=== PATIENT | male | born 1990 | race Caucasian/White ===

== ENCOUNTER 2021-03-01 10:55 | Emergency (ER) | payer OTHER, BC, SELFPAY ==
[2021-03-01 11:18] VITALS: BP 133/95; PULSE 99; RESP 18; TEMP 36.9; O2SAT 99
--- NOTE | 2021-03-01 12:46 | ED.UPPEXIN ---
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 Patient states his orthopedic history is remarkable for previous bilateral ulnar releases. He now has a 1 week worsening of at least half year history of bilateral wrist discomfort associated with paresthesias of his ring finger. Symptoms are mild, somewhat worse at night unrelieved OTC preps like Aleve. No injury, neck pain, weakness; advised to get and wear splints, take anti-inflammatories, get follow-up with prior doctors Related Data Home Medications Medication Instructions Recorded Confirmed lisinopril 20 1 tablet PO DAILY tablet 10/09/20 10/09/20 mg-hydrochlorothiazide 12.5 mg tablet pantoprazole 40 mg tablet,delayed 40 mg PO DAILY tablet 10/09/20 10/09/20 release Allergies Allergy/AdvReac Type Severity Reaction Status Date / Time Sulfa (Sulfonamide Allergy Unknown Unknown Verified 03/01/21 11:25 Antibiotics) Review of Systems Review of Systems: General/Constitutional: No weight loss,fever Eyes: N0: Redness,discharge Ears/Nose/Throat: No: Epistaxis,ear discharge Respiratory: Denies: Hemoptysis Gastrointestinal: No Vomiting, Bleeding-rectal Skin: No Lumps, eruption Neurologic: No Focal Weakness,Sz Hematologic: Denies: Petechiae/Purpura Psychiatric: No: Suicida ideationl All Other Systems: Reviewed and Negative [facility] Family History Family History Father Hypertension Other Diabetes mellitus Social History Social History Smoking status: Former smoker Alcohol intake: current Comments At time of signature, agree with nursing past medical, surgical, social and family history. There is no relevant family history pertinent to the presenting complaint Exam Narrative: General Appearance: Well appearing, Conjunctiva clear Mouth/Throat: Normal appearing, Normal lips, Supple Respiratory: Airway patent, No respiratory distress MS-wrist: Nl strength (mostly intact, limited flexion/extension by pain), Tenderness (flexor/positive Tinel's, with mild decreased ROM), no swelling , negative Phalen's Skin: Warm, Dry, Normal color Neurological: A&O x3, , Normal affect Course Vital Signs Vital signs: Vital Signs Temperature 98.5 F 03/01/21 11:18 Pulse Rate 99 03/01/21 11:18 Respiratory Rate 18 03/01/21 11:18 Blood Pressure 133/95 H 03/01/21 11:18 Pulse Oximetry 99 03/01/21 11:18 Temperature 98.5 F 03/01/21 11:18 Pulse Rate 99 03/01/21 11:18 Respiratory Rate 18 03/01/21 11:18 Blood Pressure 133/95 H 03/01/21 11:18 Pulse Oximetry 99 03/01/21 11:18 Discharge Plan Discharge Clinical Impression: Carpal tunnel syndrome, bilateral Patient Disposition: Home, Self-Care Condition: Stable Instructions: Paresthesia (ED), Carpal Tunnel Surgery (DC) Additional Instructions: See your prior elbow surgeon, occupational doctor or PMD in follow-up Try rehab/stretching exercises; Wear splints first around the clock- then at bedtime Prescriptions: New prednisone 20 mg tablet 60 mg PO DAILY Qty: 9 RF: 0 tramadol 50 mg tablet 50 - 75 mg PO BID PRN (Reason: pain) Qty: 20 RF: 0 No Action lisinopril-hydrochlorothiazide 20-12.5 mg tablet 1 tablet PO DAILY RF: 0 pantoprazole 40 mg tablet,delayed release (DR/EC) 40 mg PO DAILY RF: 0 Follow-up/Referrals: Chuy,Sreedhar Wells MD [Primary Care Provider] - Stand Alone Forms: Work/School Release IP
== END 2021-03-01 12:52 | disposition home or self-care (01) ==
PROVIDERS: Emergency Provider Emergency Medicine; PCP Internal Medicine
DX: G56.03 Carpal tunnel syndrome, bilateral upper limbs (principal); Z87.891 Personal history of nicotine dependence
CPT/HCPCS: 99213; G0463

== ENCOUNTER 2021-04-25 09:28 | Outpatient (CLI) | payer OTHER, BC, SELFPAY ==
--- NOTE | 2021-04-25 11:00 | NEURO_ITS ---
Impression: # Complains of numbness of hands. # Left Carpal Tunnel Syndrome. # Right evolving Carpal Tunnel Syndrome. # No ulnar neuropathy. # Needle/EMG exam not requested. Nerve Conduction Studies Anti Sensory Summary Table Stim Site NR Peak (ms) P-T Amp (?V) Site1 Site2 Delta-P (ms) Dist (cm) Shankar (m/s) Left Median Anti Sensory (2-3nd Digit) Wrist 2.8 55.8 Wrist 2-3nd Digit 2.8 14.0 50 Wrist 3.0 54.1 Wrist 2-3nd Digit 2.8 14.0 50 Right Median Anti Sensory (2-3nd Digit) Wrist 2.9 57.7 Wrist 2-3nd Digit 2.9 14.0 48 Wrist 3.0 77.3 Wrist 2-3nd Digit 2.9 14.0 48 Left Radial Anti Sensory (Base 1st Digit) Wrist 2.2 22.2 Wrist Base 1st Digit 2.2 0.0 Right Radial Anti Sensory (Base 1st Digit) Wrist 2.4 18.5 Wrist Base 1st Digit 2.4 0.0 Left Ulnar Anti Sensory (5th Digit) Wrist 2.8 45.8 Wrist 5th Digit 2.8 14.0 50 Right Ulnar Anti Sensory (5th Digit) Wrist 2.7 72.9 Wrist 5th Digit 2.7 14.0 52 Motor Summary Table Stim Site NR Onset (ms) O-P Amp (mV) Site1 Site2 Delta-0 (ms) Dist (cm) Shankar (m/s) Left Median Motor (Abd Poll Brev) Wrist 4.3 2.1 Elbow Wrist 6.0 34.0 57 Elbow 10.3 1.5 Right Median Motor (Abd Poll Brev) Wrist 3.6 1.3 Elbow Wrist 5.9 33.0 56 Elbow 9.5 0.9 Left Ulnar Motor (Abd Dig Minimi) Wrist 2.5 5.4 A Elbow Wrist 5.9 34.0 58 A Elbow 8.4 4.4 Right Ulnar Motor (Abd Dig Minimi) Wrist 2.9 6.4 A Elbow Wrist 6.1 35.0 57 A Elbow 9.0 5.7 F Wave Studies NR F-Lat (ms) L-R F-Lat (ms) Left Median (Mrkrs) (Abd Poll Brev) 31.47 0.35 Right Median (Mrkrs) (Abd Poll Brev) 31.11 0.35 Left Ulnar (Mrkrs) (Abd Dig Min) 31.72 1.06 Right Ulnar (Mrkrs) (Abd Dig Min) 32.78 1.06 MTDD
== END 2021-04-25 09:29 | disposition home or self-care (01) ==
LOC: ANHNEURO 09:30
PROVIDERS: PCP Internal Medicine; Visit Provider Internal Medicine
DX: R20.2 Paresthesia of skin (principal); G56.03 Carpal tunnel syndrome, bilateral upper limbs
CPT/HCPCS: 95911

== ENCOUNTER 2022-01-28 16:05 | Outpatient (CLI) | payer BC, SELFPAY ==
[2022-01-28 16:51] LABS: Alanine Aminotransferase 38 U/L (6-50); Albumin Level 4.9 g/dL (3.5-5.1); Alkaline Phosphatase 56 U/L (38-126); Anion Gap 16 mmol/L (8-16); Aspartate Amino Transferase 31 U/L (17-59); Bilirubin,Total 0.5 mg/dL (0.2-1.3); Blood Urea Nitrogen 21 mg/dL (9-20); Calcium 9.2 mg/dL (8.4-10.2); Carbon Dioxide 24 mmol/L (22-30); Chloride 100 mmol/L (98-107); Estimated Glomerular Filt Rate > 60; Glucose 115 mg/dL (65-110); Potassium 3.7 mmol/L (3.4-5.0); Sodium 140 mmol/L (137-145); Uric Acid 7.1 mg/dL (3.5-8.5)
== END 2022-01-28 16:06 | disposition home or self-care (01) ==
LOC: ANHLAB 16:08
PROVIDERS: PCP Family Medicine; Visit Provider Podiatrist Foot & Ankle Surgery
DX: M10.079 Idiopathic gout, unspecified ankle and foot (principal)
CPT/HCPCS: 36415; 80053; 84550

== ENCOUNTER 2022-04-30 15:41 | Outpatient (CLI) | payer BC, SELFPAY ==
[2022-04-30 17:28] LABS: Alanine Aminotransferase 31 U/L (6-50); Albumin Level 4.4 g/dL (3.5-5.1); Alkaline Phosphatase 57 U/L (38-126); Anion Gap 8 mmol/L (8-16); Aspartate Amino Transferase 26 U/L (17-59); Bilirubin,Total 0.4 mg/dL (0.2-1.3); Blood Urea Nitrogen 27 mg/dL (9-20); Calcium 9.2 mg/dL (8.4-10.2); Carbon Dioxide 27 mmol/L (22-30); Chloride 105 mmol/L (98-107); Estimated Glomerular Filt Rate > 60; Glucose 111 mg/dL (65-110); Potassium 3.9 mmol/L (3.4-5.0); Sodium 140 mmol/L (137-145); Uric Acid 5.4 mg/dL (3.5-8.5)
== END 2022-04-30 15:42 | disposition home or self-care (01) ==
LOC: ANHLAB 15:43
PROVIDERS: PCP Family Medicine; Visit Provider Podiatrist Foot & Ankle Surgery
DX: M10.079 Idiopathic gout, unspecified ankle and foot (principal)
CPT/HCPCS: 36415; 80053; 84550

== ENCOUNTER 2023-11-16 16:11 | Outpatient (CLI) | payer BC, SELFPAY ==
[2023-11-16 16:53] LABS: Alanine Aminotransferase 25 U/L (6-50); Albumin Level 4.8 g/dL (3.5-5.1); Alkaline Phosphatase 51 U/L (38-126); Anion Gap 9 mmol/L (4-12); Aspartate Amino Transferase 26 U/L (17-59); Bilirubin,Total 0.3 mg/dL (0.2-1.3); Blood Urea Nitrogen 22 mg/dL (9-20); Calcium 9.2 mg/dL (8.4-10.2); Carbon Dioxide 29 mmol/L (22-30); Chloride 101 mmol/L (98-107); Estimated Glomerular Filt Rate > 60; Glucose 97 mg/dL (65-110); Potassium 3.6 mmol/L (3.4-5.0); Sodium 139 mmol/L (137-145); Uric Acid 5.2 mg/dL (3.5-8.5)
== END 2023-11-16 16:12 | disposition home or self-care (01) ==
LOC: ANHLAB 16:14
PROVIDERS: PCP Family Medicine; Visit Provider Podiatrist Foot & Ankle Surgery
DX: M10.079 Idiopathic gout, unspecified ankle and foot (principal)
CPT/HCPCS: 36415; 80053; 84550

== ENCOUNTER 2024-11-14 15:58 | Outpatient (CLI) | payer BC, SELFPAY ==
--- OUTSIDE RECORDS SUMMARY | 2024-11-14 16:09 | XMS_ITS | Encounter Summary ---
Author Organization [facility] Address [address] [place] [address] Care Team Providers Care Portable Sawyer Name Role Phone Renetta Ashby [facility] Primary Care Provider + Anila Jansen [facility] Primary Care Provider + Alexander Cruz Primary Care Provider Reason for Referral * Consultation (Routine) - Closed Specialty Diagnoses / Procedures Referred By Oni huntley Referred To Contact DERMATOLOGY Diagnoses Rash and nonspecific skin eruption Procedures OFFICE/OUTPT VISIT,NEW,LEVL III OFFICE/OUTPT VISIT,NEW,LEVL IV OFFICE/OUTPT VISIT,NEW,LEVL V OFFICE/OUTPT VISIT,EST,LEVL III OFFICE/OUTPT VISIT,EST,LEVL IV OFFICE/OUTPT VISIT,EST,LEVL V Renetta Ashby FNP-BC Phone: tel: fax: [facility] DERMATOLOGY [facility] [address] Phone: tel: fax: Referral ID Status Reason Start Date Expiration Date V isits Requested Visits Authorized [id number] Closed Specialty Services 10/17/2022 11/16/2023 99 99 Encounter Details Date Type Department Care Team (Latest Contact Info) Description 10/14/2022 MyChart Message Enc [facility] Medical Group Family & Internal Medicine [facility] [address] [place] [address] Renetta Ashby, [facility] [address] [place] [address] Manager Operations and colonoscopy referral Social History Tobacco Use Types Packs/Day Years Used Date Smoking Tobacco: Never Smokeless Tobacco: Never Alcohol Use Standard Drinks/Week Comments Not Currently 16.7 (1 standard drink = 0.6 oz pure alcohol) PHQ-2 Answer Date Recorded Patient Health Questionnaire-2 Score 0 04/28/2022 Sex and Gender Information Value Date Recorded Sex Assigned at Male 08/03/2024 3:20 PM CDT Legal Sex Male 4:40 PM CDT Gender Identity Male 08/03/2024 3:20 PM CDT Sexual Orientation Not on file documented as of this encounter Functional Status * RETIRED Are you deaf or do you have serious difficulty hearing Answer Date of Assessment Author Status No 11/29/2021 10:34 PM CDT Acti ve * RETIRED Are you blind or do you have serious difficulty seeing, even when wearing glasses? Answer Date of Assessment Author Status No 11/29/2021 10:34 PM CDT Acti ve * Do you have serious difficulty walking or climbing stairs? Answer Date of Assessment Author Status No 11/29/2021 10:34 PM CDT Isidra Noriega RN Active * Do you have difficulty dressing or bathing? Answer Date of Assessment Author Status No 11/29/2021 10:34 PM CDT Isidra Noriega RN Active * Because of a physical, mental, or emotional condition, do you have difficulty doing errands alone such as visiting a doctor's office or shopping? Answer Date of Assessment Author Status No 11/29/2021 10:34 PM Isidra Garcia RN Active documented as of this encounter Mental Status * Because of a physical, mental, or emotional condition, do you have serious difficulty concentrating, remembering, or making decisions? Answer Entry Date Author Status No 11/29/2021 10:34 PM CDT Fresen, Isidra L, RN Active documented in this encounter Progress Notes * Shira Alvarez MA - 10/14/2022 4:22 PM CDT Ok for referral? documented in this encounter Plan of Treatment Upcoming Encounters Date Type Department Care Team (Late st Contact Info) Description 02/07/2025 3:20 PM COMMERCIAL LOAN CLOSER Office Visit [facility] Medical Group Family & Internal Medicine [facility] [address] [place] [address] [place] [address] [place] [address] Scheduled Referrals Name Type Priority Associated Diagnoses Orde r Schedule Ambulatory referral to Dermatology Referral Routine Rash and nonspecific skin eruption Ordered: 10/17/2022 documented as of this encounter Visit Diagnoses Diagnosis Rash and nonspecific skin eruption- Primary Rash and other nonspecific skin eruption documented in this encounter Care Teams Portable Sawyer Relationship Specialty Start Date End Date Renetta Ashby, [facility] PCP - General Nurse Practitioner Family 04/25/22 Anila Jansen, [facility]- [address] [facility], [facility] [address] [place] [address] PCP - General Nurse Practitioner Family 01/27/2309/27 [place] [address] [place] [address] PCP - General PHYSICIAN RAND CEMENTER 10/08/24 documented as of this encounter
--- OUTSIDE RECORDS SUMMARY | 2024-11-14 16:09 | XMS_ITS | Encounter Summary ---
Author Organization [facility] Address [facility] [place] [address] Care Team Providers Care Commercial Pest Control Representative Name Role Phone Renetta Ashby [facility] Primary Care Provider + Anila Jansen [facility] Primary Care Provider + Alexander Cruz Primary Care Provider [phone] Encounter Details Date Type Department Care Team (Late st Contact Info) Description 09/18/2022 [employer] Message Enc [facility] Medical Group Family & Internal Medicine [address] [address] Renetta Ashby [facility] [address] [place] [address] Referrals Social History Tobacco Use Types Packs/Day Years [...] 10:34 PM CDT Isidra Noriega RN Active documented as of this encounter Mental Status * Because of a physical, mental, or emotional condition, do you have serious difficulty concentrating, remembering, or making decisions? Answer Entry Date Author Status No 11/29/2021 10:34 PM CDT Isidra Noriega RN Active documented in this encounter Progress Notes * ROSENDO Bran - 10/17/2022 9:02 PM CDT Duplicate message. Please see 09/2022 message. documented in this encounter Plan of Treatment Upcoming Encounters Date Type Department Care Team (Late st Contact Info) Description 02/07/2025 3:20 PM ASSOCIATE PROGRAMMER ANALYST Office Visit [facility] Medical Group Family & Internal Medicine [facility] [address] [place] [address] [place] [address] [place] [address] documented as of this encounter Visit Diagnoses Not on filedocumented in this encounter Care Teams Commercial Pest Control Representative Relationship Specialty Start Date End Date Renetta Ashby FNP-BC PCP - General Nurse Practitioner Family 04/25/22 Anila Jansen, PROPERTY ECONOMIST- [address] Cristi Gunderson, [facility] [address] [place] [address] PCP - General Nurse Practitioner Family 01/27/2309/27 [place] [address] [place] [address] PCP - General PHYSICIAN SENIOR CONSTRUCTION MANAGER 10/08/24 documented as of this encounter
--- OUTSIDE RECORDS SUMMARY | 2024-11-14 16:09 | XMS_ITS | Encounter Summary ---
Author Organization [facility] Address [facility] [place] [address] Care Team Providers Care Control Room Tender Name Role Phone Justyna Anila Smiley [facility] Primary Care Provider + Alexander Cruz Primary Care Provider [phone] Encounter Details Date Type Department Care Team (Late st Contact Info) Description 02/06/2023 Eyev[employer]ys Message Enc [facility] Medical Group Family & Internal Medicine [address] [address] [facility] Provider Question about medication Social History Tobacco Use Types Packs/Day Years [...] 11/29/2021 10:34 PM Isidra Garcia RN Active * Do you have difficulty dressing or bathing? Answer Date of Assessment Author Status No 11/29/2021 10:34 PM Isidra Garcia RN Active * Because of a physical, [...] Date Author Status No 11/29/2021 10:34 PM Isidra Garcia RN Active documented in this encounter Progress Notes * Deja Boucher RN - 02/13/2023 3:17 PM CST New dosage of medication sent to pharmacy EL CLERK * ROSENDO Stewart - 02/13/2023 2:46 PM CST Reviewed with RN. Will see if pantoprazole 40 mg daily is covered. EL CLERK * Deja Boucher RN - 02/13/2023 1:49 PM CST Please advise Pantoprazole was denied. EL CLERK * Deja Boucher RN - 02/11/2023 10:25 AM CST Decision has not been made re: approval or denial through CoverMyMeds. EL CLERK * Deja Boucher RN - 02/09/2023 3:48 PM CST PA initiated today through CoverMyMeds Wood Code: [email or web address] EL CLERK * Deja Boucher RN - 02/09/2023 3:31 PM CST I have not received a request for a PA from the pharmacy or insurance. But I will go ahead and initiate one. EL CLERK documented in this encounter Plan of Treatment Upcoming Encounters Date Type Department Care Team (Late st Contact Info) Description 02/07/2025 3:20 PM MUTUEL CLERK Office Visit [facility] Medical Group Family & Internal Medicine [facility] [address] [place] [address] [place] [address] [place] [address] documented as of this encounter Visit Diagnoses Not on filedocumented in this encounter Care Teams Control Room Tender Relationship Specialty Start Date End Date Anila Jansen, [facility]- [address], [address] [place] [id number] PCP - General Nurse Practitioner Family 01/27/2309/27 [place] [address] [place], [place] [id number] PCP - General PHYSICIAN HOSPITAL EDUCATION COORDINATOR 10/08/24 documented as of this encounter
--- OUTSIDE RECORDS SUMMARY | 2024-11-14 16:09 | XMS_ITS | Encounter Summary ---
Author Organization [facility] Address [facility] [place] [address] Care Team Providers Care Can Reconditioner Name Role Phone Justyna Anila Smiley [facility] Primary Care Provider + Alexander Cruz Primary Care Provider [phone] Encounter Details Date Type Department Care Team (Late st Contact Info) Description 02/03/2023 [employer] Message Enc [facility] Medical Group Family & Internal Medicine [address] [address] [facility] Provider medication Social History Tobacco Use Types Packs/Day [...] Progress Notes * Deja Boucher RN - 02/03/2023 9:07 AM CST FYI Continue with PA? WAREHOUSE CONSULTANT documented in this encounter Plan of Treatment Upcoming Encounters Date Type Department Care Team (Late st Contact Info) Description 02/07/2025 3:20 PM DATA WAREHOUSE CONSULTANT Office Visit [facility] Medical Group Family & Internal Medicine [address] [address] [place] [address] [place] [address] documented as of this encounter Visit Diagnoses Not on filedocumented in this encounter Care Teams Can Reconditioner Relationship Specialty Start Date End Date Anila Jansen, CLINICAL NURSE REVIEWER- [address] [facility], [place] [phone] PCP - General Nurse Practitioner Family 01/27/2309/27 [place] [id number] [place] [address] [place] [address] PCP - General PHYSICIAN NEEDLE LOOM SETTER 10/08/24 documented as of this encounter
--- OUTSIDE RECORDS SUMMARY | 2024-11-14 16:09 | XMS_ITS | Encounter Summary ---
Author Organization [facility] Address [facility] [place] [address] Care Team Providers Care Director Of Investigations Name Role Phone Justyna, Anila Smiley [facility] Primary Care Provider + Alexander Cruz Primary Care Provider [phone] Reason for Visit * Reason Onset Date Comments Returned Call 06/26/2023 Encounter Details Date Type Department Care Team (Late st Contact Info) Description 06/26/2023 A[employer]yn Message Enc [facility] Medical Group Family & Internal Medicine [address] [address] [facility] Provider status Social History Tobacco Use Types Packs/Day Years [...] in this encounter Progress Notes * ROSENDO Stewart - 06/26/2023 3:43 PM CDT noted * Deja Boucher RN - 06/26/2023 2:56 PM CDT FYI * Ansley Watts - 06/26/2023 2:43 PM CDT Pt returning call, read note from provider, pt understood and stated that his pain is no where nearwhat it was before. Its every now and then but next to nothing. Pt is okay for referral and he willgo to the ER if symptoms get worse at all. Pt also mentioned he just started eating a little more food than the liquid now. Everything is staying down and so far so good. documented in this encounter Plan of Treatment Upcoming Encounters Date Type Department Care Team (Late st Contact Info) Description 02/07/2025 3:20 PM HARPSICHORD MAKER Office Visit [facility] Medical Group Family & Internal Medicine [facility] [address] [place] [address] [place] [address] [place] [address] documented as of this encounter Visit Diagnoses Not on filedocumented in this encounter Care Teams Director Of Investigations Relationship Specialty Start Date End Date Anila Jansen, PARTITION ASSEMBLER- [address] [facility] [address] [place] [address] PCP - General Nurse Practitioner Family 01/27/2309/27 [place] [address] [place], [place] [phone] PCP - General PHYSICIAN CREDIT CARD SPECIALIST 10/08/24 documented as of this encounter
--- OUTSIDE RECORDS SUMMARY | 2024-11-14 16:09 | XMS_ITS | Clinical Summary ---
Author Organization [facility] Physician Office Building [address] [place] [address] Care Team Providers Care Executive Secretary Social Welfare Name Role Phone Sreedhar Vera MD Primary Care Provider [phone] Kaur Daigle PA Unavailable [phone] Allergies Active Allergy Reactions Criticality Noted Date Comments Sulfa (Sulfonamide Antibiotics) Hives High 09/27 Medications lisinopril-hydroC HLOROthiazide (ZESTORETIC) 20-12.5 mg per tablet Take 1 tablet by mouth daily [address] (PROTONIX) 40 mg EC tablet Take 40 mg by mouth nightly 2 Active multivit-min/foli c/vit K/lycop (ONE-A-DAY MEN'S MULTIVITAMIN ORAL) Take 1 tablet/capsu le by mouth daily Active cholecalciferol (VITAMIN D-3) 1,000 unit capsule Take 1,000 Units by mouth daily Active naproxen (Naprosyn) 500 mg tablet Take 1 tablet (500 mg total) by mouth 2 (two) times a day with meals for 15 days 30 tablet 2 Active Active Problems Problem Noted Date Diagnosed Date Infection of superficial inc isional surgical site after procedure 06/25/2021 S/P carpal tunnel release 06/24/2021 Carpal tunnel syndrome, bilateral 05/27/2021 Assessment & Plan (08/29/2021 8:30 AM CDT): Patient is doing extremely well following his right carpal tunnel release and wants to proceed with his left side release now that he has recovered. The patient is back to work and performing all his normal duties. Patient was advised the risks are the same as he underwent with the right side and is willing to proceed. Assessment & Plan (05/27/2021 9:10 AM STATION CLEANING PORTER): By EMG nerve conduction study there is evidence of carpal tunnel syndrome bilaterally. He is more symptomatic on the right side is right-hand dominant. He has had progressive symptoms that lasted over year. His symptoms are respond to conservative measures and as such she wants proceed with definitive treatment. Have recommended proceeding with right carpal tunnel release initially in a stage fashion doing his left side once he has recovered on his right. Patient was advised risks of infection, incisional numbness, hypersensitive scar, neuroma formation, damage to the median nerve itself recurrent branch of the median nerve, neurovascular compromise, medical and anesthetic risks including is willing to proceed. He will likely be off of work for 2-3 weeks following each release pending healing of his incision Immunizations Immunization Administration Dates Next Due Influenza, Quadrivalent, Spl it, Preservative Free, Intramuscular 03/02/2020,01/17/2019,12/27/2017 Tdap 06/08/2020,12/27/2017 Surgical History Surgery Date Site/Laterality Comments ULNAR NERVE REPAIR Bilateral CYST REMOVAL 03/30/2014 - 03/29/2015 pilonidal CARPAL TUNNEL RELEASE Bilateral R 06/07/2021 L 09/13/21 Medical History Medical History Date Comments Hypertension Carpal tunnel syndrome, bilateral PONV (postoperative nausea and vomiting) GERD (gastroesophageal reflux disease) Family History Medical History Relation Name Comments No Known Problems Father No Known Problems Mother Relation Name Status Comments Father Alive Mother Alive Social History Tobacco Use Types Packs/Day Years Used Date Smoking Tobacco: Former Cigarettes Q uit: 2009 Smokeless Tobacco: Former Chew Quit: 06/06/2009 Tobacco Cessation:Counseling Given: Not Answered Comments:smoked for 2 months AUDIT-C Answer Date Recorded Q1: How often do you have a drink containing alcohol? 4 or more times a week 06/07/2021 Q2: How many drinks containi ng alcohol do you have on a typical day when you are drinking? 3 or 4 Q3: How often do you have si x or more drinks on one occasion? Weekly 06/07/2021 Sex and Gender Information Value Date Recorded Sex Assigned at Not on file Legal Sex Male 10:54 AM STATION CLEANING PORTER Gender Identity Not on file Sexual Orientation Not on file Obstetrics History Last Filed Vital Signs Vital Sign Reading Time Taken Comments Blood Pressure 131/75 09/13/2021 2:10 PM CDT Pulse 88 09/13/2021 2:20 PM CDT Temperature 36.7 C (98 F) 09/13/2021 1:30 PM CDT Respiratory Rate 19 09/13/2021 2:20 PM CDT Oxygen Saturation 99% 09/13/2021 2:20 PM CDT Inhaled Oxygen Concentration - - Weight 141.4 kg (311 lb 12.8 oz) 11/28/2021 8:03 AM CDT Height 195.6 cm (6' 5.01) 11/28/2021 8:03 AM CD T Body Mass Index 36.97 11/28/2021 8:03 AM CDT Plan of Treatment Health Maintenance Due Date Last Done Comments Depression Screening 1990 Hepatitis C Screening 1990 Varicella Vaccines (1 of 2 - 13+ 2-dose series) 2003 Hepatitis B Screening 2008 Regular Well Visit/Exam 18-64 2008 Pneumococcal vaccine <65 (1 of 2 - PCV) 2009 HPV Vaccines (1 - 3-dose SCDM series) 2017 Covid-19 Vaccine (3 - 2023- season) 2023, 01/25/2021 Influenza Vaccine (#1) 2024 , 01/17/2019, 12/27/2017 DTaP/Tdap/Td Vaccine (3 - Td or Tdap) 06/08/203002/2021, 12/27/2017 Insurance [employer] [facility] WORKERS COMPENSATION GENERIC Care Teams Executive Secretary Social Welfare Relationship Specialty Start Date End Date Sreedhar Vera MD [facility] [place] [address] PCP - General Internal Medicine 05/24/21 [place] [address] [address] Physician Computer Peripheral Equipment Operator Orthopedic Surgery 06/07/21
--- OUTSIDE RECORDS SUMMARY | 2024-11-14 16:09 | XMS_ITS | Encounter Summary ---
Author Organization [facility] Address [facility] [place] [address] Care Team Providers Care Human Performance Professor Name Role Phone Anila Jansen [facility] Primary Care Provider + Alexander Cruz Primary Care Provider [phone] Encounter Details Date Type Department Care Team (Late st Contact Info) Description 06/24/2023 fruux Message Enc [facility] Medical Group Family & Internal Medicine [address] [address] Anila Jansen, [address] [address] Pancreatitis Social History Tobacco Use Types Packs/Day Years [...] Assessment Author Status No 11/29/2021 10:34 PM COCOT Isidra Noriega RN Active * Do you have difficulty dressing or bathing? Answer Date of Assessment Author Status No 11/29/2021 10:34 PM COCOT Isidra Noriega RN Active * Because of [...] documented in this encounter Progress Notes * Djea Boucher RN - 06/29/2023 1:39 PM CDT 06/26/2023 2:39 PM Y Deja Boucher RN User Message status Verified patient read fruux message. * Deja Boucher RN - 06/26/2023 2:44 PM CDT duplicate * Deja Boucher RN - 06/26/2023 2:39 PM CDT Detailed message left for patient to call. fruux message also sent. * FELICIA Stewart-ADRIENNE - 06/26/2023 1:26 PM CDT Is he still having the pain? Is he able to eat/drink? If he is still in pain and unable to eat, he should go to the ER for evaluation, especially if pain is worsening. Okay to send a referral for floor technician for diabetes and low fat diet instruction. S ee if there is an opening in my schedule for next week. If the pain has improved and he is eating/drinking as normal, he can keep is appointment already scheduled in July, but only as long as his symptoms have resolved. * Sandhya Schmitz LPN - 06/26/2023 11:07 AM CDT ADRIENNE BS appeals dept called appeal has been denied a letter will be sent to PCP with # to call if questions Appeal ID # [id number] * Gaby Anthony MA - 06/26/2023 8:47 AM CDT Please advise! documented in this encounter Plan of Treatment Upcoming Encounters Date Type Department Care Team (Late st Contact Info) Description 02/07/2025 3:20 PM PARTITION SETTER Office Visit [facility] Medical Group Family & Internal Medicine [facility] [address] [place] [address] [place] [address] [place], [place] [phone] documented as of this encounter Visit Diagnoses Not on filedocumented in this encounter Care Teams Human Performance Professor Relationship Specialty Start Date End Date Anila Jansen FNP-BC [address] [facility], [address] [place] [address] PCP - General Nurse Practitioner Family 01/27/2309/27 [place] [address] [place] [address] PCP - General PHYSICIAN BREEDING TECHNICIAN 10/08/24 documented as of this encounter
--- OUTSIDE RECORDS SUMMARY | 2024-11-14 16:09 | XMS_ITS | Encounter Summary ---
Author Organization [facility] Address [facility] [place] [address] Care Team Providers Care Disulfurizer Tender Name Role Phone Anila Jansen [facility] Primary Care Provider + Alexander Cruz Primary Care Provider [phone] Encounter Details Date Type Department Care Team (Late st Contact Info) Description 02/23/2023 OWM Message Enc [facility] Family & Internal Medicine [address] [address] Anila Jansen, [address] [place] [address] Racing heart episode Social History Tobacco Use Types Packs/Day Years [...] Progress Notes * Deja Boucher RN - 02/23/2023 10:51 AM CST Please advise. R AND EMPLOYMENT PARALEGAL documented in this encounter Plan of Treatment Upcoming Encounters Date Type Department Care Team (Late st Contact Info) Description 02/07/2025 3:20 PM LABOR AND EMPLOYMENT PARALEGAL Office Visit [facility] Family & Internal Medicine [facility] [address] [place] [address] [place] [address] [place] [address] documented as of this encounter Visit Diagnoses Not on filedocumented in this encounter Care Teams Disulfurizer Tender Relationship Specialty Start Date End Date Anila Jansen, HARNESS WORKER- [address] [facility], [facility] [address] [place] [address] PCP - General Nurse Practitioner Family 01/27/2309/27 [place] [address] [place] [address] PCP - General PHYSICIAN AIR CARRIER OPERATIONS INSPECTOR 10/08/24 documented as of this encounter
--- OUTSIDE RECORDS SUMMARY | 2024-11-14 16:09 | XMS_ITS | Clinical Summary ---
Author Organization [facility] Address [address] [place] [address] Care Team Providers Care Couture Dressmaker Name Role Phone Alexander Cruz Primary Care Provider [phone] Allergies Active Allergy Reactions Criticality Noted Date Comments Sulfa Antibiotics Hives High 10/08/2020 Medications multi vitamin/minerals (THERA-M ENHANCED) tablet Take 1 tablet by mouth daily. Active vitamin D3, cholecalciferol, 1000 UNIT Tab tablet Take 1 tablet (25 mcg total) by mouth daily. Active Turmeric 500 MG Cap Take 1 capsule by mouth daily. Active pantoprazole EC (PROTONIX) 40 MG tabletIndication s:Gastroesophage al reflux disease without esophagitis Take 1 tablet by mouth once daily 90 tablet 3 06/02/2023 Active ketoconazole (NIZORAL) 2 % shampoo USE BODY WASH ONCE TO TWICE WEEKLY NEEDED. LEAVE ON 5-10 MINUTES BEFORE RINSING. 04/26/2023 Active allopurinol (ZYLOPRIM) 300 MG tablet Take 1 tablet (300 mg total) by mouth daily. 11/17/2023 Active Glucose Blood test stripIndications :Type 2 diabetes mellitus with hyperglycemia, with long-term current use of insulin ([facility] HHS/HCC) 1 strip by Other route 2 (two) times a week. Use as instructed. One touch Ultra 2. Used to monitor for hypoglycemia -verifying CGM 100 strip 06/09/2024 Active Lancets MiscIndications: Type 2 diabetes mellitus with hyperglycemia, with long-term current use of insulin ([facility]) 1 each by Does not apply route 2 (two) times a week. One touch Ultra 2-use to monitor for hypoglycemia -verifying CGM 100 each 06/09/2024 Active atorvastatin (LIPITOR) 40 MG tabletIndication s:Dyslipidemia TAKE 1 TABLET BY MOUTH NIGHTLY AT BEDTIME 90 tablet 1 07/21/2024 Active Continuous Glucose Sensor (FREESTYLE ANYA 3 PLUS SENSOR) MiscIndications: Type 2 diabetes mellitus with diabetic polyneuropathy, without long-term current use of insulin ([facility]) 1 EACH BY DOES NOT APPLY ROUTE EVERY 14 (FOURTEEN) DAYS. 6 each 3 09/18/2024 Active Active Problems Problem Noted Date Diagnosed Date Gastroesophageal reflux disease without esophagi tis 08/09/2023 Class 1 obesity due to exces s calories with serious comorbidity and body mass index (BMI) of 33.0 to 33.9 in adult 05/04/2022 Family history of Vásquez syndrome 05/04/2022 Dyslipidemia 05/04/2022 Chronic gout of multiple sites, unspecified caus e 05/04/2022 Type 2 diabetes mellitus wit h hyperglycemia, with long-term current use of insulin ([facility]) 05/04/2022 Alcoholism in remission ([facility]) 2022 Pancreatitis ([facility]) 11/29/2021 Resolved Problems Problem Noted Date Diagnosed Date Resolved Date Infection of superficial inc isional surgical site after procedure 06/25/2021 08/17/2022 Encounters Date Type Department Care Team Description 09/21/2024 3:20 PM CDT Allied Health/Nurse Visit [facility] Medical [facility] Family & Internal Medicine [facility] [address] [phone] Omid Weaver FNP-BC Imm/Inj (2nd Hep B) 09/21/2024 Travel 08/25/2024 Results Follow-Up [facility] Family & Internal Medicine [facility] [address] [phone] Omid Weaver FNP-BC US ABD LIMITED 08/23/2024 3:12 PM CDT - 08/23/2024 11:59 PM CDT Hospital Encounter [facility] Ultrasound [address] [place] [address] Omid Weaver, [facility]- Discharge Disposition: Home or Self Care (Routine Discharge) 08/23/2024 Travel from Last 3 Months Immunizations Immunization Administration Dates Next Due Hepatitis B (Recombivax Hb 10 Mcg) 09/21/2024, Influenza Adult (Generic) 03/02/2020,06/2019,01/17/2019,2018,12/27/2017,12/27/2017 PFIZER COVID-19 (ORIGINAL FORMULATION, PURPLE CAP) mRNA, LNP-S, PF, 30 MCG/0.3 ML DOSE 02/15/2021,01/25/2021 Tdap (Generic) 06/08/2020,12/27/2017 Family History Medical History Relation Comments Hyperlipidemia Father Hypertension Father Diabetes Paternal Grandmother Cancer Sister colon Relation Status Comments Father Paternal Grandmother Sister Social History Tobacco Use Types Packs/Day Years Used Date Smoking Tobacco: Never Smokeless Tobacco: Never Tobacco Cessation:Counseling Given: No Alcohol Use Standard Drinks/Week Comments Not Currently 0 (1 standard drink = 0.6 oz pur e alcohol) PHQ-2 Answer Date Recorded Patient Health Questionnaire-2 Score 0 08/03/2024 Sex and Gender Information Value Date Recorded Sex Assigned at Male 08/03/2024 3:20 PM CDT Legal Sex Male 4:40 PM CDT Gender Identity Male 08/03/2024 3:20 PM CDT Sexual Orientation Not on file Last Filed Vital Signs Vital Sign Reading Time Taken Comments Blood Pressure 130/89 08/03/2024 3:07 PM CDT Pulse 82 08/03/2024 3:07 PM CDT Temperature 36.4 C (97.5 F) 08/03/2024 3:07 PM CDT Respiratory Rate 16 08/03/2024 3:07 PM CDT Oxygen Saturation 99% 08/03/2024 3:07 PM CDT Inhaled Oxygen Concentration - - Weight 124.3 kg (274 lb) 08/03/2024 3:07 PM CDT Height 193 cm (6' 4) 08/03/2024 3:07 PM CDT Body Mass Index 33.35 08/03/2024 3:07 PM CDT Plan of Treatment Upcoming Encounters Date Type Department Care Team (Late st Contact Info) Description 02/07/2025 3:20 PM EXTRUDER OPERATOR HORIZONTAL Office Visit [facility] Medical Group Family & Internal Medicine [facility] [address] [place] [address] [place] [address] [place] [address] Health Maintenance Due Date Last Done Comments Kidney Health Evaluation 1990 Hepatitis B Vaccines (1 of 3 - 19+ 3-dose series) 2009 09/21/2024, 08/03/2024 HPV Vaccines (1 - 3-dose SCDM series) 2017 Annual Physical 04/28/2023 04/28/2022 Hemoglobin A1C 01/26/2025 07/27/2024, 11/0 08/2023, 08/03/2023, Additional history exists Lipid Panel 07/27/2025 07/27/2024, 07/28, 05/08/2022 COVID-19 Vaccine ( season) 2025 02/15/2021, 01/25/2021 Postponed from 11/29/2023 (Patient Refused) Pneumococcal Vaccine: Pediatrics (0 to 5 Years) and At-Risk Patients (6 to 49 Years) (1 of 2 - PCV) 08/03/2025 Postponed from 2009 (Patient Refused) Diabetes: Retinopathy Eye Exam 03/01/2026 03/01/2024 Colorectal Cancer Screening Colonoscopy (10 Years) 11/12/2028 11/13/2023, 11/13/2023 DTaP, Tdap and Td Vaccines (3 - Td or Tdap) 06/08/2030 06/08/2020, 12/27/2017 Hepatitis C Completed 05/08/2022 PHQ-2 (Physician [place]) Completed 08/03/2024 Meningococcal B Vaccine Aged Out No l onger eligible based on patient's age to complete this topic Meningococcal Vaccine Aged Out No dexter barney eligible based on patient's age to complete this topic RSV Immunizations Under 20 Months Aged Out No longer eligible based on patient's age to complete this topic Procedures Procedure Name Priority Date/Time Associated Diagnosis Comments US ABD LIMITED Routine 08/23/2024 3:47 PM CDT Fatty liver disease, nonalcoholic LIPID PANEL Routine 07/27/2024 10:49 AM CDT Dyslipidemia HEMOGLOBIN, GLYCOSYLATED Routine 07/27/2024 10:49 AM CDT Type 2 diabetes mellitus with hyperglycemia, with long-term current use of insulin (CMS/HCC HHS/HCC) DIABETIC RETINOPATHY EXAM (NEGATIVE)(SCAN ORDER) Routine 03/01/2024 COLONOSCOPY Routine 11/13/2023 8:24 AM CDT HEPATITIS C ANTIBODY Routine 05/08/2022 10:53 AM EXTRUDER OPERATOR HORIZONTAL Need for hepatitis C screening test from Last 3 Months or Most Recently Relevant to Health Maintenance Results * US ABD LIMITED (08/23/2024 3:47 PM CDT) Anatomical Region Laterality Modality Abdomen Ultrasound 08/25/2024 7:41 AM CDT Impressions 08/25/2024 7:43 AM CDT Impression: 1. Hepatic steatosis. No focal hepatic lesion identified. 2. Dilatation of the common bile duct measuring up to 9 mm. Correlate with LFTs and consider MRCP if clinically indicated. Referred By: OMID WEAVER Interpreted By: Dave Marie MD, 08/25/2024 7:41 AM Narrative 08/25/2024 7:43 AM CDT [facility] [address] [place] [address] Procedure: US ABD LIMITED Indication: STUART surveillance, h/o hepatomegaly Comparison: CT abdomen pelvis 11/29/2021. Technique: Grayscale and color Doppler ultrasound of the right upper quadrant was performed. Findings: Gallbladder: Intraluminal contents: No stones or sludge. Wall thickness: 0.2 cm. This is within normal limits. Distention: Not abnormally distended. Pericholecystic fluid: No pericholecystic fluid. Sonographic White's sign is absent. Bile Ducts: No intrahepatic or extrahepatic ductal dilation Common bile duct diameter: 0.9 cm. Liver: Increased echogenicity compatible with hepatic steatosis. No focal mass. The liver measures 17.9 cm. The main portal vein is patent with appropriate direction of flow. Pancreas: Not well evaluated due to overlying bowel gas. Kidneys: Right kidney measures 10.7 cm. No hydronephrosis. Fluid: None. Procedure Note Dave Marie MD - 08/25/2024 [facility] [address] [place] [address] Procedure: US ABD LIMITED Indication: STUART surveillance, h/o hepatomegaly Comparison: CT abdomen pelvis 11/29/2021. Technique: Grayscale and color Doppler ultrasound of the right upperquadrant was performed. Findings: Gallbladder: Intraluminal contents: No stones or sludge. Wall thickness: 0.2 cm. This is within normal limits. Distention: Not abnormally distended. Pericholecystic fluid: No pericholecystic fluid. Sonographic White's sign is absent. Bile Ducts: No intrahepatic or extrahepatic ductal dilation Common bile duct diameter: 0.9 cm. Liver: Increased echogenicity compatible with hepatic steatosis. No focalmass. The liver measures 17.9 cm. The main portal vein is patent withappropriate direction of flow. Pancreas: Not well evaluated due to overlying bowel gas. Kidneys: Right kidney measures 10.7 cm. No hydronephrosis. Fluid: None. Impression: 1. Hepatic steatosis. No focal hepatic lesion identified. 2. Dilatation of the common bile duct measuring up to 9 mm. Correlatewith LFTs and consider MRCP if clinically indicated. Referred By: OMID WEAVER Interpreted By: Dave Marie MD, 08/25/2024 7:41 AM us Omid Weaver POLITICAL RESEARCH SCIENTIST-BC ULTRASOUND Final Re sult * (ABNORMAL) HEMOGLOBIN, GLYCOSYLATED (07/27/2024 10:49 AM CDT) HGB A1C 6.0(H) <5.7 % 07/27/2024 2:42 PM CDT [facility] Comment: INCREASED RISK OF DIABETES <5.7% NON-DIABETES 5.7-6.4% INCREASED RISK FOR FUTURE DIABETES > OR = 6.5 CONSISTENT WITH DIABETES STANDARDS OF MEDICAL CARE IN DIABETES-2010 DIABETES CARE, 33(SUPP 1): S1-S61,2009 ESTIMATED AVG GLUCOSE 126 mg/dL 07/27/2024 2:42 PM CDT [facility] 07/27/2024 10:4 9 AM CDT Omid Weaver [facility] Final Re sult [facility] [address] [place] [address], [place] [phone] * LIPID PANEL (07/27/2024 10:49 AM CDT) CHOLESTEROL 158 <200.0 MG/DL 07/27/2024 2:31 PM CDT [facility] TRIGLYCERIDES 106 <150 MG/DL 07/27/2024 2:31 PM CDT [facility] HDL 41 >40.0 MG/DL 07/27/2024 2:31 PM T [facility] LDL (CALCULATED) 96 <100 MG/DL 07/28/19 25 2:31 PM CDT [facility] NON HDL CHOLESTEROL 117 <130 MG/DL 07/27 2:31 PM T [facility] CHOL/HDL RATIO 3.9 0.0 - 4.5 07/27/2024 2:31 PM T [facility] VLDL CALCULATION 21 5 - 55 MG/DL 07/27/2024 2:31 PM T [facility] LIPID INTERPRETATION 07/27/2024 2:31 PM T [facility] Comment: NIH CONCENSUS REPORT RECOMMENDATIONS: ADULT CHILD LOW RISK: CHOLESTEROL <200 <170 TRIGLYCERIDE <150 --- HDL >=60 --- LDL <100 <110 BORDERLINE: CHOLESTEROL 200-239 170-199 TRIGLYCERIDE 150-199 --- HDL 40-59 --- LDL 100-159 110-129 HIGH RISK: CHOLESTEROL >=240 >=200 TRIGLYCERIDE >=200 --- HDL <40 --- LDL >=160 >=130 07/27/2024 10:4 9 AM CDT Omid Weaver [facility] Final Re sult [facility] [address] [place] [address], [place] [phone] * DIABETIC RETINOPATHY EXAM (NEGATIVE) (03/01/2024) [facility] Scanned SCANNING Final Resu lt Performing Organization Address City/[facility]/ZIP Co de Phone Number [facility] ONBASE * HEPATITIS C AB ([facility] ONLY) (05/08/2022 10:53 AM EXTRUDER OPERATOR HORIZONTAL) HEPATITIS C AB NON-REACTI VE NON-REACTI VE 05/08/2022 3:20 PM EXTRUDER OPERATOR HORIZONTAL [facility] 05/08/2022 10:5 3 AM EXTRUDER OPERATOR HORIZONTAL Renetta Ashby [facility] Final Re sult Performing Organization Address City/[facility]/ZIP Co de Phone Number [facility] [address] [place] [address], [place] [phone] from Last 3 Months or Most Recently Relevant to Health Maintenance [place] [address] [address] [place] [address] Advance Directives * Full Code (Latest Code Status on File) Date Activated Date Inactivated Comments 11/29/2021 9:10 PM 12/01/2021 3:27 PM Care Teams Couture Dressmaker Relationship Specialty [place] [address] [place] [address] PCP - General PHYSICIAN MEDICAL CHEMIST 10/08/24
--- OUTSIDE RECORDS SUMMARY | 2024-11-14 16:09 | XMS_ITS | Encounter Summary ---
Author Organization [facility] Address [facility] [place] [address] Care Team Providers Care Glue Bone Drier Name Role Phone Renetta Ashby [facility] Primary Care Provider + Anila Jansen [facility] Primary Care Provider + Alexander Cruz Primary Care Provider Encounter Details Date Type Department Care Team (Late st Contact Info) Description 08/04/2022 Food on the Tablet Message Enc [facility] Medical Group Family & Internal Medicine [address] [address] Renetta Ashby [facility] [address] [place] [address] Prednisone Social History Tobacco Use Types Packs/Day Years [...] PM CDT Sexual Orientation Not on file COVID-19 Exposure Response Date Recorded In the last 10 days, have yo u been in contact with someone who was confirmed or suspected to have Coronavirus/COVID-19? No / Unsure 07/29/2022 3:11 PM CDT documented as of this encounter Functional Status [...] documented in this encounter Progress Notes * Louann Liu RN - 08/05/2022 9:04 AM CDT Changed to a pt call & sent to [place]. documented in this encounter Plan of Treatment Upcoming Encounters Date Type Department Care Team (Late st Contact Info) Description 02/07/2025 3:20 PM JOB LITHOGRAPHER Office Visit [facility] Medical Group Family & Internal Medicine [facility] [address] [place] [address] [place] Cruz [place] [address] [place] [address] documented as of this encounter Visit Diagnoses Not on filedocumented in this encounter Care Teams Glue Bone Drier Relationship Specialty Start Date End Date Renetta Ashby, [facility] PCP - General Nurse Practitioner Family 04/25/22 Anila Jansen [facility] [address], [address] [place], [place] [id number] PCP - General Nurse Practitioner Family 01/27/2309/27 [place] [address] [place] [address] PCP - General PHYSICIAN DEICER FINISHER 10/08/24 documented as of this encounter
[2024-11-14 17:01] LABS: Alanine Aminotransferase 29 U/L (6-50); Albumin Level 4.4 g/dL (3.5-5.1); Alkaline Phosphatase 47 U/L (38-126); Anion Gap 10 mmol/L (4-12); Aspartate Amino Transferase 28 U/L (17-59); Bilirubin,Total 0.3 mg/dL (0.2-1.3); Blood Urea Nitrogen 23 mg/dL (9-20); Calcium 9.4 mg/dL (8.4-10.2); Carbon Dioxide 23 mmol/L (22-30); Chloride 105 mmol/L (98-107); Estimated Glomerular Filt Rate > 60; Glucose 117 mg/dL (65-110); Potassium 3.9 mmol/L (3.4-5.0); Sodium 138 mmol/L (137-145); Total Protein 7.1 g/dL (6.3-8.2); Uric Acid 4.6 mg/dL (3.5-8.5)
== END 2024-11-14 15:59 | disposition home or self-care (01) ==
LOC: ANHLAB 16:00
PROVIDERS: PCP Physician Assistant; Visit Provider Podiatrist Foot & Ankle Surgery
DX: M10.071 Idiopathic gout, right ankle and foot (principal)
CPT/HCPCS: 36415; 80053; 84550